=== PATIENT | female | born 1965 | race African-American/Black ===

== ENCOUNTER 2019-10-28 16:55 | Emergency (ER) | payer MEDICAID ==
[~2019-10-28] VITALS: Ht 162.6 cm; Wt 49.0 kg
--- NOTE | 2019-10-28 17:07 | NUR ---
CAME IN FOR ABDOMINAL CRAMPING, BLOOD IN STOOL NOTED X 2 DAYS. SENT FROM URGENT CARE, TO ER BED 9, HOOKED TO MONITOR, CHANGED TO HOSP GOWN, WARM BLABKET PROVIDED, PATIENT AAO x 4, BREATHING EVEN AND UNLABORED. AWAITING MD CARDENAS
--- NOTE | 2019-10-28 17:08 | NUR ---
DR HERNANDEZ AT BEDSIDE
[2019-10-28] MEDS ORDERED: IV NS 0.9% 1,000 ML BAG IV ONE ×2 (17:30→18:30)
[2019-10-28 17:48] LABS: BASOPHILS % (AUTO) 0.4 % (0.0-2.0); HEMATOCRIT 29 % (33-45); HEMOGLOBIN 9.4 g/dL (11.5-14.8); LYMPHOCYTES # (AUTO) 0.8 /CMM (0.8-4.8); LYMPHOCYTES % (AUTO) 9.4 % (20.0-44.0); MEAN CORPUSCULAR HGB CONC 32 g/dl (31.0-36.0); MEAN CORPUSCULAR VOLUME 91 fL (82-100); MONOCYTES # (AUTO) 0.3 /CMM (0.1-1.30); NEUTROPHILS # (AUTO) 7.3 /CMM (1.8-8.9); NEUTROPHILS % (AUTO) 86.2 % (43.0-81.0); PLATELET COUNT (AUTO) 169 /CMM (150-450); RED BLOOD CELL COUNT(AUTO) 3.18 MIL/uL (4.0-5.2); WHITE BLOOD COUNT (AUTO) 8.4 K/uL (4.3-11.0)
[2019-10-28 18:02] LABS: ALBUMIN 4.2 g/dL (3.4-5.0); BILIRUBIN,DIRECT 0.3 mg/dL (0.0-0.2); BILIRUBIN,TOTAL 0.8 mg/dL (0.2-1.0); CALCIUM, SERUM 9.4 mg/dL (8.5-10.1); CREATININE 1.1 mg/dL (0.6-1.3); TOTAL PROTEIN, SERUM 7.9 g/dL (6.4-8.2)
[2019-10-28] MEDS ORDERED: LEVOFLOXACIN 750 MG /D5W 150ML 150 ML IV ONE ×2 (18:20→18:30)
[2019-10-28] MEDS ORDERED: METRONIDAZOLE 500MG/ NS 100ML 100 ML IV ONE ×2 (18:20→18:30)
--- NOTE | 2019-10-28 18:37 | NUR ---
MOVE SHEET SUBMITTED AND CALLED FOR TELE BED.
--- NOTE | 2019-10-28 19:01 | NUR ---
SPOKE TO [facility] [employer] SALES REPRESENTATIVE LUDMILA [phone], PROVIDED PATIENT CLINICALS. CM WILL DISCUSS INFO OF PATIENT WITH CLINICAL DIRECTOR. WILL CALL BACK FOR TRANSFER DETAILS AT [facility]
--- NOTE | 2019-10-28 19:04 | NUR ---
FOLLOWED UP MAIN LAB FOR RAPID COVID KIT.
--- NOTE | 2019-10-28 19:08 | NUR ---
Melvin camargo in [facility] - 10/28/19 at 1909 by [facility] LAB CALLED REGARDING MRSA, ORDER PLACED.
--- NOTE | 2019-10-28 19:18 | NUR ---
REPORT GIVEN TO GEMMA BUCHANAN FOR VIVIANE.
[2019-10-28 19:26] VITALS: BP 136/76
--- NOTE | 2019-10-28 19:41 | NUR ---
COVID SWAB SENT TO LAB
--- NOTE | 2019-10-28 20:25 | NUR ---
PT TO [id number] Valerie BUCHANAN [phone] AM WEST 45 mins.
--- NOTE | 2019-10-28 20:47 | NUR ---
REPORT GIVEN TO ANT BUCHANAN FOR VIVIANE
--- NOTE | 2019-10-28 21:15 | NUR ---
REPORT GIVEN TO SOLEDAD BAZAN. [facility]
== END 2019-10-28 21:16 | disposition short-term general hospital (02) ==
LOC: ER 17:00
DX: K92.2 Gastrointestinal hemorrhage, unspecified (principal); A09 Infectious gastroenteritis and colitis, unspecified; F10.10 Alcohol abuse, uncomplicated; Y90.0 Blood alcohol level of less than 20 mg/100 ml; Z88.1 Allergy status to other antibiotic agents; Z88.0 Allergy status to penicillin; Z20.828 Contact with and (suspected) exposure to other viral communicable diseases; R00.0 Tachycardia, unspecified; D64.9 Anemia, unspecified
CPT/HCPCS: 36415; 71045; 74176; 80048; 80076; 80307; 83605 ×2; 83690; 85025; 85730; 86850; 87040 ×2; 87426; 93005; 96361; 96365; 96367; 99285; C9803; J1956; J7030; G0480